=== PATIENT | female | born 2000 | race Caucasian/White ===

== ENCOUNTER → 2024-04-02 | Outpatient (CLI) | payer OTHER ==
[~2024-04-02] MED LIST: REGLAN1013 PO; TRANSDERM-SCOP1 EA13 TD
[2024-04-02 18:20] LABS: Source, Urine Clean Catch
[2024-04-02 19:49] LABS: Appearance, Urine Clear (Clear); Blood, Urine Neg (Neg); Color, Urine Yellow (P-Yellow); Glucose Qualitative, Urine Neg (Neg); Ketones, Urine 4+ (Neg); Leukocyte Esterase, Urine Neg (Neg); Nitrite, Urine Neg (Neg); Protein, Urine 2+ (Neg); Urobilinogen, Urine 3+ (Normal)
[2024-04-02 19:54] LABS: BASOPHILS ABSOLUTE AUTO 0.03 K/mm3 (0.00-0.23); BASOPHILS PERCENT AUTO 0 % (0-2); EOSINOPHILS PERCENT AUTO 0 % (0-6); Hematocrit 46.1 % (33.0-51.0); Hemoglobin 16.7 g/dL (11.5-16.0); IMMATURE GRAN ABSOLUTE AUTO 0.06 K/mm3 (0.00-0.10); IMMATURE GRAN PERCENT AUTO 0 % (0-1); LYMPHOCYTES ABSOLUTE AUTO 1.44 K/mm3 (0.84-5.20); LYMPHOCYTES PERCENT AUTO 10 % (21-46); MONOCYTES ABSOLUTE AUTO 0.71 K/mm3 (0.16-1.47); MONOCYTES PERCENT AUTO 5 % (4-13); Mean Corpuscular HGB 33.6 pg (26.0-34.0); Mean Corpuscular HGB Conc 36.2 g/dL (31.5-36.5); Mean Corpuscular Volume 93 fL (80-100); Mean Platelet Volume 11.4 fL (9.1-12.4); NEUTROPHILS ABSOLUTE AUTO 12.94 K/mm3 (1.96-9.15); NEUTROPHILS PERCENT AUTO 85 % (41-73); Platelet Count 372 K/mm3 (150-400); RDW Coefficient Variation 12.3 % (11.7-14.2); RDW Standard Deviation 42.1 fL (35.1-46.3); Red Blood Cell Count 4.97 M/mm3 (3.80-5.20); White Blood Cell Count 15.18 K/mm3 (4.00-11.30)
[2024-04-02 20:02] LABS: Bilirubin, Urine 1+ (Neg)
[2024-04-02 20:03] LABS: Bacteria Many /hpf; Hyaline Casts 0-2 /lpf (0-2); Mucus Light (0-Heavy); Squamous Epithelial Cells Few /hpf (Few)
[2024-04-05 11:29] LABS: HEPATITIS B SURFACE ANTIGEN Negative (Negative)
[2024-04-05 16:16] LABS: HIV 1,2 COMBO ANTIGEN/ANTIBODY Negative (Negative)
[2024-04-05 16:30] LABS: HEPATITIS C AB CIA INTERP Negative (Negative); HEPATITIS C ANTIBODY CIA INDEX 0.11 IV
== END ==
LOC: LAB SHORT 18:17 → LAB 18:17
PROVIDERS: Registered Nurse Community Health
DX: Z34.91 Encounter for supervision of normal pregnancy, unspecified, first trimester (principal)
CPT/HCPCS: 81001; 84443; 86803; 87086; 87340; 87389

== ENCOUNTER 2024-04-03 12:23 | Emergency (ER) | payer OTHER ==
[~2024-04-03] VITALS: Ht 170.2 cm; Wt 124.3 kg
[2024-04-03 13:05] LABS: BASOPHILS ABSOLUTE AUTO 0.04 K/mm3 (0.00-0.23); BASOPHILS PERCENT AUTO 0 % (0-2); EOSINOPHILS ABSOLUTE AUTO 0.01 K/mm3 (0.00-0.68); EOSINOPHILS PERCENT AUTO 0 % (0-6); Hematocrit 41.9 % (33.0-51.0); IMMATURE GRAN ABSOLUTE AUTO 0.04 K/mm3 (0.00-0.10); IMMATURE GRAN PERCENT AUTO 0 % (0-1); LYMPHOCYTES ABSOLUTE AUTO 1.24 K/mm3 (0.84-5.20); LYMPHOCYTES PERCENT AUTO 9 % (21-46); MONOCYTES ABSOLUTE AUTO 0.65 K/mm3 (0.16-1.47); MONOCYTES PERCENT AUTO 5 % (4-13); Mean Corpuscular HGB 32.4 pg (26.0-34.0); Mean Corpuscular HGB Conc 35.8 g/dL (31.5-36.5); Mean Corpuscular Volume 91 fL (80-100); Mean Platelet Volume 11.1 fL (9.1-12.4); NEUTROPHILS PERCENT AUTO 85 % (41-73); Platelet Count 340 K/mm3 (150-400); RDW Coefficient Variation 12.2 % (11.7-14.2); Red Blood Cell Count 4.63 M/mm3 (3.80-5.20); White Blood Cell Count 13.18 K/mm3 (4.00-11.30)
[2024-04-03 13:17] LABS: Albumin, Blood 4.1 g/dL (3.4-5.0); Albumin/Globulin Ratio 1.2 (0.8-1.8); Bilirubin, Total 1.3 mg/dL (0.1-1.0); Bun/Creatinine Ratio 17.7 (12.0-20.0); Calcium, Blood 10.1 mg/dL (8.5-10.1); Creatinine, Blood 0.68 mg/dL (0.40-1.00); Globulin, Blood 3.5 g/dL (2.2-4.0); Magnesium, Blood 1.8 mg/dL (1.6-2.4); Potassium, Blood 3.5 mmol/L (3.5-5.5); Total Protein, Blood 7.6 g/dL (6.4-8.2)
[2024-04-03] MEDS ORDERED: TRANSDERM-SCOP1 EA13 TD (13:29)
[2024-04-03] MEDS ORDERED: REGLAN1013 PO (13:29)
[2024-04-03] MEDS ORDERED: NS 1,000 ML IV SCH (13:50)
[2024-04-03 14:45] VITALS: BP 103/65
== END 2024-04-03 14:54 | disposition home or self-care (01) ==
LOC: ER 12:23
PROVIDERS: Physician Assistant
DX: O21.9 Vomiting of pregnancy, unspecified (principal); Z87.891 Personal history of nicotine dependence; Z79.899 Other long term (current) drug therapy; Z3A.01 Less than 8 weeks gestation of pregnancy
CPT/HCPCS: 80053; 83735; 85025; 96360; 99284-25; J7030

== ENCOUNTER → 2024-04-07 | Outpatient (CLI) | payer OTHER ==
[~2024-04-07] MED LIST changes: +PRENATAL 19 TA1 EAC3 PO
[2024-04-09 10:14] LABS: APTIMA MEDIA TYPE Urine; C. TRACHOMATIS BY TMA Negative (Negative); N. GONORRHOEAE BY TMA Negative (Negative); SPECIMEN SOURCE Urine
== END ==
LOC: LAB SHORT 14:23 → LAB 14:23
PROVIDERS: Registered Nurse Community Health
DX: Z34.91 Encounter for supervision of normal pregnancy, unspecified, first trimester (principal)
CPT/HCPCS: 87491; 87591

== ENCOUNTER 2024-04-16 03:33 | Day surgery (SDC) | payer OTHER ==
[~2024-04-16 03:33] MED LIST changes: -PRENATAL 19 TA1 EAC3 PO
[2024-04-16] MEDS ORDERED: Lactated Ringer's 1,000 ML IV SCH (06:35)
[2024-04-16 17:00] VITALS: BP 124/88
[2024-04-16] MEDS ORDERED: PRENATAL 19 TA1 EAC3 PO (18:16)
== END 2024-04-16 18:00 | disposition home or self-care (01) ==
LOC: ATC 03:33
DX: O21.9 Vomiting of pregnancy, unspecified (principal); O99.611 Diseases of the digestive system complicating pregnancy, first trimester; K21.9 Gastro-esophageal reflux disease without esophagitis; Z3A.09 9 weeks gestation of pregnancy; Z87.891 Personal history of nicotine dependence; Z79.899 Other long term (current) drug therapy
CPT/HCPCS: 96360; J7120

== ENCOUNTER 2024-04-20 01:38 | Day surgery (SDC) | payer OTHER ==
[~2024-04-20 01:38] MED LIST changes: +PRENATAL 19 TA1 EAC3 PO
[2024-04-20] MEDS ORDERED: Lactated Ringer's 1,000 ML IV SCH (07:20)
[2024-04-20 15:57] VITALS: BP 136/72
== END 2024-04-20 17:18 | disposition home or self-care (01) ==
LOC: ATC 01:38
DX: O21.9 Vomiting of pregnancy, unspecified (principal); O99.611 Diseases of the digestive system complicating pregnancy, first trimester; K21.9 Gastro-esophageal reflux disease without esophagitis; Z79.899 Other long term (current) drug therapy; Z87.891 Personal history of nicotine dependence; Z3A.09 9 weeks gestation of pregnancy
CPT/HCPCS: 96360; J7120

== ENCOUNTER 2024-04-23 01:44 | Day surgery (SDC) | payer OTHER ==
[2024-04-23] MEDS ORDERED: Lactated Ringer's 1,000 ML IV SCH (06:55)
[2024-04-23 10:18] VITALS: BP 133/82
== END 2024-04-23 11:26 | disposition home or self-care (01) ==
LOC: ATC 01:44
DX: O21.9 Vomiting of pregnancy, unspecified (principal); Z3A.09 9 weeks gestation of pregnancy
CPT/HCPCS: 96360; J7120

== ENCOUNTER 2024-04-27 00:13 | Day surgery (SDC) | payer OTHER ==
[2024-04-27] MEDS ORDERED: Lactated Ringer's 1,000 ML IV SCH ×2 (07:20→15:55)
[2024-04-27 16:01] VITALS: BP 102/67
[2024-04-27] MEDS ORDERED: ONDA4 PO (16:02)
[2024-04-27] MEDS ORDERED: Prochlorperazin10 MG PO (16:03)
== END 2024-04-27 17:09 | disposition home or self-care (01) ==
LOC: ATC 00:13
DX: O21.9 Vomiting of pregnancy, unspecified (principal); Z3A.09 9 weeks gestation of pregnancy
CPT/HCPCS: 96360; J7120

== ENCOUNTER 2024-04-30 05:04 | Day surgery (SDC) | payer OTHER ==
[~2024-04-30 05:04] MED LIST changes: +ONDA4 PO; +Prochlorperazin10 MG PO
[2024-04-30 15:57] VITALS: BP 148/80
[2024-04-30] MEDS ORDERED: Lactated Ringer's 1,000 ML IV SCH (16:00)
== END 2024-04-30 17:17 | disposition home or self-care (01) ==
LOC: ATC 05:04
DX: O21.9 Vomiting of pregnancy, unspecified (principal); Z3A.09 9 weeks gestation of pregnancy
CPT/HCPCS: 96360; J7120

== ENCOUNTER → 2024-05-27 | Outpatient (CLI) | payer OTHER | END | disposition home or self-care (01) | LOC: LAB 18:39 → LAB SHORT 18:39 | DX: N39.0 Urinary tract infection, site not specified (principal); R31.9 Hematuria, unspecified | CPT/HCPCS: 87086 ==

== ENCOUNTER → 2024-08-26 | Outpatient (CLI) | payer OTHER ==
[2024-08-26 17:42] LABS: Hematocrit 37.3 % (33.0-51.0)
== END ==
LOC: LAB 16:05 → LAB SHORT 16:05
PROVIDERS: Registered Nurse Community Health
DX: Z34.93 Encounter for supervision of normal pregnancy, unspecified, third trimester (principal)
CPT/HCPCS: 82950; 85014; 85018

== ENCOUNTER → 2024-10-15 | Outpatient (CLI) | payer OTHER | LOC: LAB SHORT 11:14 → LAB 11:14 | DX: Z34.03 Encounter for supervision of normal first pregnancy, third trimester (principal) | CPT/HCPCS: 87081; 87150 ==